=== PATIENT | female | born 1950 | race Caucasian/White ===

== ENCOUNTER → 2020-10-15 12:22 | Outpatient (CLI) | payer MEDICARE, OTHER, SELFPAY ==
--- NOTE | ~2020-10-15 | XR_ITS ---
EXAMINATION: XR hand LT 2V, XR hand RT 2V DATE: 10/15/2020 13:40 INDICATION: Systemic lupus erythematosus TECHNIQUE: 1. Posteroanterior, oblique and lateral views of the left hand were obtained. 2. Posteroanterior, oblique and lateral views of the right hand were obtained. COMPARISON: None. FINDINGS: Disproportionate severe osteoarthritis at the right first metacarpophalangeal joint with mild radial subluxation of the proximal phalanx with remodeling at the dorsal/ulnar side of the base. There is al so a slight mallet finger deformity at the right index finger with severe osteoarthritis at the dista l interphalangeal joint. Erosion with corticated margins and overhanging edge at the ulnar side of th e head of the right first metacarpal. There is slight hyperextension at the left third-fifth and righ t third and fourth proximal interphalangeal joints. Chondrocalcinosis at the bilateral triangular fib rocartilage complexes. Additional mild polyarticular osteoarthritis at the bilateral triscaphe, first carpometacarpal and majority the remaining metacarpophalangeal and interphalangeal joints. No fractu res. On the lateral projections there is mild soft tissue swelling about the left second and right th ird metacarpophalangeal joints. IMPRESSION: 1. Generally mild polyarticular osteoarthritis throughout both hands with disproportionately severe o steoarthritis at the right first metacarpophalangeal and second distal interphalangeal joints which s uggests suggests this could represent secondary osteoarthritis related to prior insult including trau ma, infection or other crystalline or inflammatory arthritis. 2. Erosion at the head of the right first metacarpal with appearance suggesting possibility out as we ll as chondrocalcinosis at the bilateral triangle fibrocartilage complexes which would be more typica l of calcium pyrophosphate deposition (CPPD) disease. 3. Hyperextension of at several of the bilateral proximal interphalangeal joints with mild swan neck deformity at the left fifth digit which could be secondary to reported history of lupus. Reviewed, dictated and finalized at location A. IMPRESSION: 1. Generally mild polyarticular osteoarthritis throughout both hands with dispr oportionately severe osteoarthritis at the right first metacarpophalangeal and second distal interphalangeal joints which suggests suggests this could represe nt secondary osteoarthritis related to prior insult including trauma, infection or other crystalline or inflammatory arthritis. 2. Erosion at the head of the right first metacarpal with appearance suggesting possibility out as well as chondrocalcinosis at the bilateral triangle fibroca rtilage complexes which would be more typical of calcium pyrophosphate depositi on (CPPD) disease. 3. Hyperextension of at several of the bilateral proximal interphalangeal joint s with mild swan neck deformity at the left fifth digit which could be secondar y to reported history of lupus.
== END ==
PROVIDERS: Visit Provider Physician Assistant Medical
DX: M32.9 Systemic lupus erythematosus, unspecified (principal); M19.042 Primary osteoarthritis, left hand; M19.041 Primary osteoarthritis, right hand; M20.032 Swan-neck deformity of left finger(s)
CPT/HCPCS: 73120